=== PATIENT | male | born 1995 | race Caucasian/White ===

== ENCOUNTER 2023-12-27 23:55 | Emergency (ER) | payer SELFPAY ==
[~2023-12-27] VITALS: Ht 185.4 cm; Wt 86.0 kg
[2023-12-28 00:11] VITALS: BP 133/73; PULSE 86; TEMP 98; O2SAT 98
[2023-12-28] MEDS: LIDOCAINE HCL/EPINEPHRINE 1%-EPI 1:100,000 20ML VIAL INFIL ONE (00:45)
[2023-12-28 00:55] VITALS: RESP 17; O2SAT 100
[2023-12-28] MEDS ORDERED: LIDOCAINE HCL/EPINEPHRINE 1%-EPI 1:100,000 20ML VIAL INFIL NR (01:00)
== END 2023-12-28 01:02 | disposition home or self-care (01) ==
LOC: ER 12-28 00:07
DX: S01.81XA Laceration without foreign body of other part of head, initial encounter (principal); W01.0XXA Fall on same level from slipping, tripping and stumbling without subsequent striking against object, initial encounter; Y93.89 Activity, other specified; Y92.89 Other specified places as the place of occurrence of the external cause; Y99.8 Other external cause status
CPT/HCPCS: 12011; 99282; J3490; Z7610 ×2